=== PATIENT | male | born 1980 | race Hispanic/Latino ===

== ENCOUNTER 2016-10-30 20:03 | Emergency (ER) | payer SELFPAY ==
[~2016-10-30] VITALS: Ht 177.8 cm; Wt 74.6 kg
[2016-10-30] MEDS ORDERED: NORCO 5/3251 TABLET PO (21:04)
[2016-10-30] MEDS ORDERED: PEN-VEE K,VEET500 MG PO (21:04)
[2016-10-30 21:20] VITALS: BP 147/86
== END 2016-10-30 21:20 | disposition home or self-care (01) ==
LOC: EME 20:03
DX: K05.30 Chronic periodontitis, unspecified (principal)
CPT/HCPCS: 99281; 99283